=== PATIENT | female | born 1950 | race Caucasian/White ===

== ENCOUNTER 2023-01-10 07:13 | Day surgery (SDC) | payer MEDICARE, OTHER ==
[~2023-01-10] VITALS: Ht 165.1 cm; Wt 109.8 kg
[~2023-01-10 07:13] MED LIST: ATENOLOL25 MG PO; BACTRIM DS TAB1 EACH PO; COZAAR100 MG PO; HYDROCHLOROTH12.5 MG PO; NORCO 5-325 TA1 EACH PO; OMEPRAZOLE20 MG; SENNA S TABLET1 EA PO; TROSPIUM CHLORI20 MG PO
[2023-01-10 07:38] VITALS: BP 117/65
--- NOTE | 2023-01-10 09:23 | NUR ---
01/10/23 0923 Nereyda Silva 0912-PATIENT ARRIVED TO PACU ON RA 91% RR EVEN. PATIENT REACTIVE TO VERBAL STIMULI REMAINS VERY DROWSY. LAYING LEFT LATERAL ABDOMEN SOFT. 0915-PATIENT SLEEPING O2 SAT 89-90% ON RA. PATIENT AROUSES EASILY TAKES DEEP BREATHES PLACED ON 2L NC DOZES BACK TO SLEEP. PATIENT HAS SLEEP APNEA AND USES CPAP AT HOME.
[2023-01-10 10:12] VITALS: BP 148/88
--- NOTE | 2023-01-11 07:58 | OR ---
[facility] [address] [place], [place] [address] Signed DATE OF OPERATION: 01/10/2023 SURGEON: Ariel Beck MD PREOPERATIVE DIAGNOSES: 1. Moderate sized hiatal hernia. 2. History of gastritis. 3. Gastroesophageal reflux disease with globus and cough. 4. Esophageal dysphagia. 5. Screening. 6. Single sigmoid diverticulum. 7. Small internal anal skin tags. POSTOPERATIVE DIAGNOSES: 1. Small hiatal hernia (37-35 cm). 2. Mild diffuse gastritis. 3. GE junction at 35 cm. 4. Minimal sigmoid diverticulosis. 5. 4 mm polyp at 18 cm in distal sigmoid colon. 6. Small internal anal skin tags x2. PROCEDURES: 1. EGD with CLOtest and biopsies of the antrum and GE junction. 2. Colonoscopy biopsy. ESTIMATED BLOOD LOSS: None. INDICATIONS: Fam is a 72-year-old obese female, asked to see me for followup upper and lower endoscopy. I helped her back in 2012 at the age of 62 with both upper and lower endoscopy. We felt she had a moderate-sized hiatal hernia at that time with mild diffuse gastritis and a negative CLOtest. We visualized a single sigmoid diverticulum and small internal anal skin tags. We had asked her to follow up in 10 years. Apparently, her acid reflux has progressed despite 40 mg of Prilosec each day. She is describing some sense of globus and esophageal dysphagia. She has apparently had a cough, but she did not cough in the office and she was not coughing this morning. She is now on Nexium and Pepcid and that seems to be better. She has no family history of colon cancer or polyps. In the office, I gave her a pamphlet on both upper and lower endoscopy. We had reviewed the test together. We had reviewed the written instructions Electronically Signed By: ARIEL BECK MD 01/11/23 0758 PATIENT NAME: FAM HYATT OPERATIVE REPORT DATE OF : 52 REPORT #: [id number] PHYSICIAN: ARIEL BECK MD PCP: TAMIKO VIRGEN PA-C REPORT IS CONFIDENTIAL AND NOT TO BE RELEASED WITHOUT AUTHORIZATION [facility] [address] [place], [place] [address] Signed for bowel prep in detail. We also reviewed the need for IV sedation with Versed and fentanyl. Her always takes her home afterwards as they live over an hour away. She had expressed understanding and wished to proceed. DESCRIPTION OF PROCEDURE: Fam was taken into our endoscopy suite and placed in the supine semi-recumbent position. She was given a total of 6 mg of Versed and 175 mcg of fentanyl to cover both cases. The posterior oropharynx was anesthetized with lidocaine spray. A bite block was utilized for the case. The adult gastroscope was introduced and advanced under direct visualization of the camera into the third portion of the duodenum. The duodenum and pyloric channel were unremarkable. Again, her stomach just showed some mild diffuse erythematous changes. We went ahead and took a biopsy of the antrum for CLOtest as well as pathologic review. There were no ulcerations in the pyloric bulb or the antrum. Upon retroflexion of the scope, she has a typical polyp scattered throughout the proximal half of her stomach from being on a proton pump inhibitor. We could see one polyp up at the hiatal hernia that rolls back and forth and it was a bit irritated. The scope was withdrawn up through the area of the GE junction, which was compliant without stricture. There was no gastric or esophageal varices. We measured out the hiatal hernia on this occasion from 37 cm back to about 35 cm. She had some mild disruption to the Z-line. There was a little irritation around the Z-line, so we took a biopsy. There was no Sheppard's mucosa. No distal esophagitis. The middle and upper esophagus were unremarkable. After this, the gas was suctioned out and the gastroscope removed. Fam tolerated the procedure quite well. Fam was then rotated into the left lateral decubitus position. She was maintained on IV sedation with the Versed and fentanyl. A digital rectal exam was performed and this was unremarkable. Really not much in the way of any external hemorrhoids. She had a good sphincter tone. The adult colonoscope was introduced and advanced all around into the cecum under direct visualization of the camera without difficulty. Her prep was quite excellent. We could easily see the appendiceal orifice and the ileocecal valve. The scope was then slowly withdrawn. On this occasion, we did see some scattered diverticula in the left and sigmoid colon. There are small to moderate size, somewhat shallow and scattered about. We did find a 4 mm polyp at 18 cm in the distal sigmoid colon. We took a small biopsy and the rest of it we cauterized. The rectum was unremarkable. Upon retroflexion of the scope, we can see just a couple of tiny internal anal skin tags. After this, the gas was suctioned out and the colonoscope removed. Fam tolerated the colonoscopy quite well. RECOMMENDATIONS: I will see Fam back in my office in 7 to 14 days to review her results. She also asked me quite a bit of detail about her sister's gastric bypass surgery. Fam has a body mass index of 39. It would help if she would lose weight with respect to the acid Electronically Signed By: ARIEL BECK MD 01/11/23 0758 PATIENT NAME: FAM HYATT OPERATIVE REPORT DATE OF : 52 REPORT #: [id number] PHYSICIAN: ARIEL BECK MD PCP: TAMIKO VIRGEN PA-C REPORT IS CONFIDENTIAL AND NOT TO BE RELEASED WITHOUT AUTHORIZATION [address] [place], [place] [address] Signed reflux. Ariel Beck MD ALB/MODL /[id number] cc: MARIA GUADALUPE Boothe MD Copies: TAMIKO VIRGEN PA-C, ANDREW L MD ~ Electronically Signed By: ARIEL BECK MD 01/11/23 0758 PATIENT NAME: FAM HYATT OPERATIVE REPORT DATE OF : 52 REPORT #: [id number] PHYSICIAN: ARIEL BECK MD PCP: TAMIKO VIRGEN PA-C REPORT IS CONFIDENTIAL AND NOT TO BE RELEASED WITHOUT AUTHORIZATION
--- NOTE | 2023-01-15 15:32 | PATH ---
[facility] [address] [place], [place] [address] Signed SPECIMEN(S): A ANTRUM/PYLORUS BIOPSY SPECIMEN(S): B GE JUNCTION BIOPSY SPECIMEN(S): C DISTAL SIGMOID COLON POLYP AT 18 CM SPECIMEN SOURCE: A. ANTRUM/PYLORUS BIOPSY B. GE JUNCTION BIOPSY C. DISTAL SIGMOID COLON POLYP AT 18 CM CLINICAL HISTORY: Pre: 1) History of moderate hiatal hernia, mild gastritis, negative test; 2) diverticulum. Post: 1) Small hiatal hernia and mild gastritis; 2) diverticulum and polyp x 1. FINAL PATHOLOGIC DIAGNOSIS: A. Antrum / pylorus biopsy: - Antral-type mucosa with focal mild chronic inflammation. - A Helicobacter pylori immunostain is negative for organisms. B. Gastroesophageal junction biopsy: - Benign gastric-type mucosa with focal slight chronic inflammation. - Negative for specialized intestinal metaplasia or dysplasia. C. Distal sigmoid colon polyp at 18 cm: - Hyperplastic polyp (one fragment). JVR:[id number] MICROSCOPIC EXAMINATION: Histologic sections of all submitted blocks are examined by light microscopy. These findings, together with the gross examination, support the pathologic diagnosis. A helicobacter pylori immunostain is performed with appropriate controls on block A1 and is negative for organisms. GROSS DESCRIPTION: A. The specimen, labeled and designated "Glenys, antrum/pylorus biopsy," is received in formalin and consists of one choi soft tissue fragment, 0.4 cm. Entirely submitted in (A1). B. The specimen, labeled and designated "Glenys, GE junction biopsy," is received in formalin and consists of one choi soft tissue fragment, 0.3 cm. Entirely submitted in (B1). C. The specimen, labeled and designated "Bieber, distal sigmoid colon polyp at 18 cm," is received in formalin and consists of one choi soft tissue fragment, PATIENT NAME: FAM HYATT PATHOLOGY DATE OF : 52 REPORT #: [id number] PHYSICIAN: NGOZI PATRICK PCP: TAMIKO VIRGEN PA-C REPORT IS CONFIDENTIAL AND NOT TO BE RELEASED WITHOUT AUTHORIZATION [facility] [address], [place] [address] Signed 0.3 cm. Entirely submitted in (C1). VB (under the direct supervision of a pathologist) The Gross Description was prepared using a voice recognition system. The report was reviewed for accuracy; however, sound-alike word errors, addition and/or deletions may occur. If there is any question about this report, please contact Client Services. PERFORMING LABORATORY: The technical component was performed by [facility], [address] [place] [id number] (CLIA# [id number]). Professional interpretation was performed by [facility] - [facility], [address] [place] [id number] (CLIA#: [id number]). Diagnostician: Cornell Paulino MD Pathologist Electronically Signed 01/15/2023 Copies: ~ PATIENT NAME: FAM HYATT PATHOLOGY DATE OF : 52 REPORT #: [id number] PHYSICIAN: NGOZI PATRICK PCP: TAMIKO VIRGEN PA-C REPORT IS CONFIDENTIAL AND NOT TO BE RELEASED WITHOUT AUTHORIZATION
== END 2023-01-10 10:25 | disposition home or self-care (01) ==
LOC: OPS 07:13 → DS 07:13 → OPS 08:15
PROVIDERS: ATTEND Colon & Rectal Surgery
PROC: 0DBN8ZX Excision of Sigmoid Colon, Via Natural or Artificial Opening Endoscopic, Diagnostic (ICD-10-PCS; 2023-01-10)
PROC: 0DB48ZX Excision of Esophagogastric Junction, Via Natural or Artificial Opening Endoscopic, Diagnostic (ICD-10-PCS; principal; 2023-01-10 08:15)
PROC: 0DB78ZX Excision of Stomach, Pylorus, Via Natural or Artificial Opening Endoscopic, Diagnostic (ICD-10-PCS; 2023-01-10 08:15)
DX: Z12.11 Encounter for screening for malignant neoplasm of colon (principal); E66.9 Obesity, unspecified; I10 Essential (primary) hypertension; K21.9 Gastro-esophageal reflux disease without esophagitis; E78.5 Hyperlipidemia, unspecified; K44.9 Diaphragmatic hernia without obstruction or gangrene; R13.19 Other dysphagia; K64.4 Residual hemorrhoidal skin tags; K57.30 Diverticulosis of large intestine without perforation or abscess without bleeding; K63.5 Polyp of colon; K29.50 Unspecified chronic gastritis without bleeding; Z68.39 Body mass index [BMI] 39.0-39.9, adult; Z86.19 Personal history of other infectious and parasitic diseases
CPT/HCPCS: 36415; 87077; 99153; G0500; J0690; J2250; J3010; J7121

== ENCOUNTER 2025-06-14 07:00 | Day surgery (SDC) | payer MEDICARE, OTHER ==
[~2025-06-14] VITALS: Ht 165.1 cm; Wt 95.0 kg
[~2025-06-14 07:00] MED LIST changes: +ALEVE220 MG PO; +CEFAZOLIN SODIUM 2 GM in SODIUM CHLORIDE 0.9% 100 ML IV SCH; +ESOMEPRAZOLE MA40 MG PO; +FAMOTIDINE20 MG PO; +GABAPENTIN 600 MG TAB PO SCH; +IBLOOD GLUCOSE TEST STRIP 1 EA TEST VI PRN; +INTRA-ARTICULAR ANALGESIC INJECTION XX SCH; +LACTATED RINGER'S 1,000 ML IV SCH; +LIDOCAINE HCL 1% 5 ML SDV INJ ONE; +LOSARTAN-HCTZ1 EAC2 PO; +MULTI VITAMIN1 EACH PO; +NITROFURANTOIN100 MG PO; +OXYCODONE HCL 5 MG TAB PO SCH; +PANTOPRAZOLE SODIUM 40 MG TABEC PO SCH; +TRANEXAMIC ACID IN NACL,ISO-OS 1,000 MG/100 ML PIGGYBACK IV SCH; +TYLENOL EXTRA500 MG PO
[2025-06-14 07:21] VITALS: BP 138/77
[2025-06-14] MEDS ORDERED: CALCIUM500 M1 PO (07:25)
[2025-06-14] MEDS ORDERED: BUPIVACAINE 0.75% IN DEXTROSE 2 ML AMP ONE (08:31)
[2025-06-14] MEDS ORDERED: LIDOCAINE HCL 2% 5 ML SDV ONE ×2 (08:31→09:07)
[2025-06-14] MEDS ORDERED: KETOROLAC TROMETHAMINE 15 MG/ML VIAL IV PRN (08:45)
[2025-06-14] MEDS ORDERED: OXYCODONE HCL 5 MG TAB PO PRN (08:45)
[2025-06-14] MEDS ORDERED: TRANEXAMIC ACID 650 MG TABLET PO SCH (09:00)
[2025-06-14] MEDS ORDERED: ASPIRIN 325 MG TAB PO SCH (09:00)
[2025-06-14] MEDS ORDERED: HYDROmorphone HCL 1 MG/ML SYR IV PRN (10:15)
[2025-06-14] MEDS ORDERED: NALOXONE HCL 0.4 MG SYR IV PRN (10:15)
[2025-06-14] MEDS ORDERED: IBLOOD GLUCOSE TEST STRIP 1 EA TEST VI PRN (10:15)
[2025-06-14] MEDS ORDERED: PROCHLORPERAZINE EDISYLATE 10 MG/2 ML VIAL IV PRN (10:15)
[2025-06-14] MEDS ORDERED: fentaNYL citrate 50 MCG/ML SDV IV PRN (10:15)
[2025-06-14] MEDS ORDERED: TRANEXAMIC ACI650 MG PO (11:08)
[2025-06-14] MEDS ORDERED: OXYCODONE HCL5 M1 PO (11:08)
[2025-06-14] MEDS ORDERED: ASPIRIN325 MG PO (11:08)
[2025-06-14] MEDS ORDERED: CEFUROXIME250 MG PO (11:08)
[2025-06-14] MEDS ORDERED: CELECOXIB200 MG PO (11:08)
[2025-06-14] MEDS ORDERED: SENNA LAX8.6 MG PO (11:09)
--- NOTE | 2025-06-14 11:18 | NUR ---
06/14/25 Sammie8 Leslie Blue 1111: PT ARRIVES TO PACU. SHE IS AWAKE OFF AND ON. REPROT RECEIVED FROM GAS PLUMBING INSPECTOR AND PAPIER MACHE MOLDER. IMAGING CALLED FOR XRAY. ANA 1117: IMAGING IS AT THE BEDSIDE FOR XRAY. PT DENIES PAIN OR NAUSEA, JUST REPORTS BEING COLD.
[2025-06-14] MEDS ORDERED: TRANEXAMIC ACID IN NACL,ISO-OS 1,000 MG/100 ML PIGGYBACK IV SCH (12:00)
[2025-06-14 12:02] VITALS: BP 131/61
--- NOTE | 2025-06-14 12:09 | NUR ---
1157- PT ARRIVES FROM PACU. BEDSIDE REPORT RECIEVED FROM EUNICE QUINTANA. SURGICAL SITE ASSESSED CDI. VITAL SIGNS OBATINED. LR INFUSING. CRYO-CUFF IN PLACE. HOT AIR IN PLACE. PT SPINAL IS AT HER KNEE. PT DENIES PAIN OR NAUSEA. PT IS ON 2L AT THIS TIME VIA NC. PT WILL BE PROVIDED WITH SNACKS AND DRINK. BED IS LOCKED IN THE LOWEST POSITION AND CALL LIGHT IN REACH.
--- NOTE | 2025-06-14 12:22 | NUR ---
1220- PT IS GIVEN SNACKS. O2 TURNED OFF AT THIS TIME. PT IS ABLE TO MAINTAIN SATS ABOVE 95%.
[2025-06-14 12:56] VITALS: BP 141/84
--- NOTE | 2025-06-14 12:56 | NUR ---
1255- PT WAS ABLE TO EAT JELLO AND DRINK JUICE. PT REPORTS 5/10 PAIN. PAIN MEDICATION PROVIDED, SEE EMAR. LR INFUSING. VITAL SIGNS OBATINED. SURGICAL SITE ASSESSED. PT LUNCH HAS ARRIVED AND PT EATING SLOWLY. PT DENIES NAUSEA. PT IS ABLE TO WIGGLE TOES AND FEELS WHEN RN TOUCHES THEM. SPINAL STILL AT L5. CALL LIGHT IN REACH, BED LOCKED IN THE LOWEST POSITON. GLASSES PROVIDED PER [facility] REQUEST AND SHE IS WATCHING A SHOW ON HER IPAD.
--- NOTE | 2025-06-14 13:34 | NUR ---
1333- PT REPORTS 02/25 PAIN. PAIN MEDICATION PROVIDED PER PT REQUEST. SEE EMAR.
[2025-06-14 14:10] VITALS: BP 136/59
--- NOTE | 2025-06-14 14:22 | NUR ---
1400- VITAL SIGNS OBTAINED. SURGICAL SITES ASSESSED. LR INFUSING. PT REPORTS 7/10 PAIN THAT THE PAIN MEDICATION IS NOT HELPING. ICE PACK ADJUSTED. SPINAL IS RESOLVED. PT IS RESTING BUT EASILY WAKES TO VERBAL STIMULI. BED IS LOCKED IN THE LOWEST POSITION AND CALL LIGHT IN REACH. AT BEDSIDE. 1420- PAIN MEDICATION GIVEN, SEE EMAR.
[2025-06-14] MEDS ORDERED: ACETAMINOPHEN 500 MG TAB PO SCH (15:00)
--- NOTE | 2025-06-14 15:09 | NUR ---
1500- PT IS WITH PHYSCICAL THERAPY AT THIS TIME.
[2025-06-14] MEDS ORDERED: CEFAZOLIN SODIUM 2 GM in SODIUM CHLORIDE 0.9% 100 ML IV SCH (16:00)
[2025-06-14 16:11] VITALS: BP 116/80
--- NOTE | 2025-06-14 16:50 | NUR ---
1547- PT HAS PASSED PHYSICAL THERAPY. DR. HAYWARD CALLED AND VERBAL ORDER RECIEVED TO DC PT. 1600- PT HAS BEEN UP TO VOID WITH PHYSCIAL THERAPY. PT HAD AN UNMEASURED VOID. VITAL SIGNS OBTAINED. PT WAS DRESSED WITH PHYSICAL THERAPY THERE TO ASSIST. 1635- ANTIBIOTIC IN, SEE EMAR. IV REMOVED. DISCAHRGE CRITERIA MET. DISCHARGE PAPERWORK GONE OVER AND EDUCATION GIVEN. PT IS ABLE SAFELY TRANSFER TO HOSPITAL WHEELCHAIR. PT LEAVES DAY SURGERY AT THIS TIME WITH ALL BELONGINGS. PT IS ABLE TO TRANSFER TO VEHICLE SEAT WITH .
[2025-06-14] MEDS ORDERED: SENNOSIDES 1 TAB PO SCH (21:00)
[2025-06-15] MEDS ORDERED: CELECOXIB 200 MG CAP PO SCH (08:00)
--- NOTE | 2025-06-17 16:19 | OR ---
[facility] [address] [place], [place] [address] Signed DATE OF OPERATION: 06/14/2025 SURGEON: Carlos Meléndez MD PREOPERATIVE DIAGNOSIS: Severe hip degenerative joint disease, left. POSTOPERATIVE DIAGNOSIS: Severe hip degenerative joint disease, left. PROCEDURE PERFORMED: Left total hip arthroplasty with Dawson. MANAGER NUCLEAR: Bernie Flaherty PA-C. Bernie was present and critical for all portions of procedure. ANESTHESIA: Spinal. BLOOD LOSS: 200 mL. IMPLANTS: Frances Insignia size 7 58 mm cup with two screws and a -5 head. BRIEF HISTORY: Fam is a 74-year-old female with progressive worsening of osteoarthritis in her left hip. Nonoperative treatment was unsuccessful. Risks and benefits of operative treatment were discussed with her and she elected to proceed. Once consent was obtained, she was taken to the operating room. After adequate anesthesia, she was placed in the right lateral decubitus position with all downside pressure points well padded. An axillary roll was placed. The hip was then prepped and draped in a standard sterile fashion from the ribs to the toes. The navigation computer array was then placed in the posterior iliac crest three fingerbreadths posterior to the ASIS. The hip was then approached through standard anterolateral approach, carried through skin and subcutaneous tissue. IT band was divided longitudinally. The vastus lateralis was divided along the anterior margin of the femur to the tip to the trochanter. The capsule and minimus were then split from the tip of the trochanter to the acetabular rim. This was then peeled off the anterior femoral neck and the periacetabular soft Electronically Signed By: CARLOS MELÉNDEZ MD 06/17/25 1619 PATIENT NAME: FAM HYATT OPERATIVE REPORT DATE OF : 52 REPORT #: [id number] PHYSICIAN: CARLOS MELÉNDEZ MD PCP: TAMIKO VIRGEN PA-C REPORT IS CONFIDENTIAL AND NOT TO BE RELEASED WITHOUT AUTHORIZATION [facility] [address] [place], [place] [address] Signed tissue was removed. Once this was completed, the leg was registered with the computer. The hip was then dislocated and the femoral neck cut was made one fingerbreadth above the lesser trochanter, which was quite posterior in this case. The femoral head was then removed and again any remaining soft tissue was removed. The acetabulum was registered with the computer. The robot was then brought in. The acetabulum was reamed in 40 degrees of abduction and 19 degrees of anteversion. Once this was completed, the cup was inserted and impacted until it was fully seated. The bone was just a little bit soft, so I placed two screws in the posterior superior quadrant. The liner was then impacted until it was locked into position. Attention was then turned to the proximal femur, which was opened using the [employer] cutter, followed by the Edu awl. It was then sequentially broached up to a 7 with a 7 broach left in position. Initially high offset and -2.5 head was attempted, however, it was a little bit tight, so until the standard offset had -5 head, which felt good and had good leg lengths. The hip was then dislocated and the trial was removed. The calcar was reamed prior to removing the broach. The final stem was then impacted until it was fully seated on the calcar. The trunnion was cleaned and the -5 head was positioned and impacted. The hip was reduced again. Range of motion was good, good stability and no impingement. The wound was copiously irrigated with one bottle Surgiphor followed by normal saline. The periarticular soft tissues were injected with 100 mL ropivacaine Toradol mixture. The capsule was then closed using #2 FiberWire. Vastus and IT band layers were closed independently using #2 Stratafix. The fat was then closed with 2-0 Monocryl, the subcutaneous tissue with 0 Stratafix and skin with 3-0. The wound was dressed with an Acticoat-7 dressing, ABDs, and Kobi wrap. She tolerated the procedure well. All sponge, needle, and instrument counts were correct. Carlos Meléndez MD BA/MODL /[id number] Copies: ~ Electronically Signed By: CARLOS MELÉNDEZ MD 06/17/25 1619 PATIENT NAME: FAM HYATT OPERATIVE REPORT DATE OF : 52 REPORT #: [id number] PHYSICIAN: CARLOS MELÉNDEZ MD PCP: TAMIKO VIRGEN PA-C REPORT IS CONFIDENTIAL AND NOT TO BE RELEASED WITHOUT AUTHORIZATION
== END 2025-06-14 16:35 | disposition home or self-care (01) ==
LOC: DS 07:00
PROVIDERS: ATTEND Specialist
PROC: 0SRB0JZ Replacement of Left Hip Joint with Synthetic Substitute, Open Approach (ICD-10-PCS; principal; 2025-06-14 09:05)
DX: M16.12 Unilateral primary osteoarthritis, left hip (principal); I10 Essential (primary) hypertension; Z79.899 Other long term (current) drug therapy; Z90.49 Acquired absence of other specified parts of digestive tract
CPT/HCPCS: 0055T; 27130; 01214; 72170; 97161; 97530; A9270; C1713; C1776; J0688; J1885; J2003; J2405; J2704